=== PATIENT | male | born 1990 | race Caucasian/White ===

== ENCOUNTER 2016-11-06 13:34 | Emergency (ER) | payer MEDICAID ==
[~2016-11-06] VITALS: Ht 180.3 cm; Wt 76.5 kg
[~2016-11-06 13:34] MED LIST: IBUP800T25 PO; RTPRO HHN
[2016-11-06 13:50] VITALS: Ht 180.3 cm; Wt 76.5 kg
[2016-11-06] MEDS ORDERED: ALBUTEROL 0.083% (NEB) 2.5 MG/3 ML AMP NEB STA (16:29)
[2016-11-06] MEDS ORDERED: IPRATROPIUM (NEB) 0.5 MG/2.5 ML AMP NEB STA (16:29)
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
[2016-11-06] MEDS ORDERED: ALBU18HF INHALATION (17:36)
[2016-11-06] MEDS ORDERED: AZIT250T94 PO (17:37)
== END 2016-11-06 17:50 | disposition home or self-care (01) ==
LOC: FTE 13:34
DX: J45.901 Unspecified asthma with (acute) exacerbation (principal)
CPT/HCPCS: 94664; Z7502; Z7610

== ENCOUNTER 2018-03-21 09:29 | Emergency (ER) | payer MEDICAID, OTHER ==
[~2018-03-21] VITALS: Ht 182.9 cm; Wt 75.3 kg
[~2018-03-21 09:29] MED LIST changes: +ALBU18HF INHALATION; +AZIT250T PO; -IBUP800T25 PO; +IBUP800T48 PO
[2018-03-21 09:40] VITALS: BP 145/69; PULSE 86; RESP 19; Ht 182.9 cm; Wt 75.3 kg
[2018-03-21] MEDS ORDERED: FLUC150T PO (09:56)
--- NOTE | 2018-03-21 09:59 | ERD ---
ER Documentation Chief Complaint Chief Complaint lab work request ( genital reasons as per pt) HPI 27-year-old male presents the emergency department complaining of redness on his penis. Patient states that he was sexually active a proximal me 1 week ago and has had redness on his penis since that time. He is concerned that he has a "fungal infection" and is requesting an HIV test. He reports no other significant symptoms. ROS All systems reviewed and are negative except as per history of present illness. Medications Home Meds Active Scripts Fluconazole* (Diflucan*) 150 Mg Tablet, 150 MG PO ONCE, #1 TAB Prov:ANA ROSA ANDERSEN 03/21/18 Azithromycin* (Zithromax*) 250 Mg Tablet, 250 MG PO .ZPACK DIRECTED, #6 TAB TAKE 500 MG (2 TABS) THE FIRST DAY THEN 250 MG (1 TAB) DAYS 2-5 Prov:SY RODRIGUEZ PA-C 11/06/16 Albuterol Sulfate* (Ventolin HFA*) 18 Gm Hfa.aer.ad, 2 PUFF INHALATION Q4H, #1 INHALER Prov:SY RODRIGUEZ PA-C 11/06/16 Ibuprofen* (Motrin*) 800 Mg Tab, 800 MG PO Q8 PRN for PAIN AND OR ELEVATED TEMP, #30 TAB Prov:YOHAN RAE NP 06/28/15 Reported Medications Albuterol Sulfate* (Proventil* Neb) 0.083% Neb, 2.5 MG HHN Q4H PRN for SHORTNESS OF BREATH, EA 09/19/13 Allergies Allergies: Coded Allergies: guaifenesin (Verified Allergy, Unknown, 01/14/14) PMhx/Soc History of Surgery: Yes (Tonsilectomy) Anesthesia Reaction: No Hx Neurological Disorder: No Hx Respiratory Disorders: Yes (asthma, bronchitis,) Hx Cardiac Disorders: No Hx Psychiatric Problems: No Hx Miscellaneous Medical Probl: No Hx Alcohol Use: Yes (socially) Hx Substance Use: No Hx Tobacco Use: Yes FmHx noncontributory for chief complaint Physical Exam Vitals Vital Signs Date Temp Pulse Resp B/P (MAP) Pulse Ox O2 O2 Flow FiO2 Time Delivery Rate 03/21/18 98.7 86 19 145/69 99 09:40 (94) Physical Exam Patient was taken to a room, seen and evaluated. Comfort measures were initiated. MEDICAL DECISION MAKIN-year-old otherwise healthy male presents the emergency department with what appears to be an uncomplicated jock itch. Patient has no signs of secondary infection and no significant risk factors. He is being referred back to the [facility] for an outpatient HIV test. Departure Diagnosis: Primary Impression: Jock itch Condition: Stable Patient Instructions: Tinea Cruris, Jock Itch Referrals: [facility] YOU HAVE RECEIVED A MEDICAL SCREENING EXAM AND THE RESULTS INDICATE THAT YOU DO NOT HAVE A CONDITION THAT REQUIRES URGENT TREATMENT IN THE EMERGENCY DEPARTMENT. FURTHER EVALUATION AND TREATMENT OF YOUR CONDITION CAN WAIT UNTIL YOU ARE SEEN IN YOUR DOCTORS OFFICE WITHIN THE NEXT 1-2 DAYS. IT IS YOUR RESPONSIBILITY TO MAKE AN APPOINTMENT FOR FOLOW-UP CARE. IF YOU HAVE A PRIMARY DOCTOR --you should call your primary doctor and schedule an appointment IF YOU DO NOT HAVE A PRIMARY DOCTOR YOU CAN CALL OUR PHYSICIAN REFERRAL HOTLINE AT IF YOU CAN NOT AFFORD TO SEE A PHYSICIAN YOU CAN CHOSE FROM THE FOLLOWING [facility] CL[facility] [id number] [facility] [facility] [address] [address] [facility] [address] [facility] [facility] [address] [facility] [address] [facility] [facility]. [address] Additional Instructions: continue the lotrimin see the [facility] for an HIV test ANA ROSA ANDERSEN Mar 21, 2018 09:59
== END 2018-03-21 10:13 | disposition home or self-care (01) ==
LOC: FTE 09:29
DX: B35.6 Tinea cruris (principal); J45.909 Unspecified asthma, uncomplicated; Z87.891 Personal history of nicotine dependence
CPT/HCPCS: 99283